=== PATIENT | female | born 1995 | race Caucasian/White ===

== ENCOUNTER 2017-10-13 13:09 | Emergency (ER) | payer OTHER ==
[2017-10-13 13:26] VITALS: O2SAT 98
--- NOTE | 2017-10-13 14:10 | C.PDOC ---
History Of Present Illness 22 y/o female presents to the ER for evaluation after she had a syncopal episode during a blood withdrawal in the lab today. Patient states that she is 32 weeks and undergoing care. Patient reports that she is eating and drinking normally. Denies having seizure activity. Currently, patient is at baseline at bedside. Time Seen by Provider: 10/13/17 14:06 Chief Complaint (Nursing): Syncope History Per: Patient History/Exam Limitations: no limitations Onset/Duration Of Symptoms: Hrs Current Symptoms Are (Timing): Gone Severity: Moderate Past Medical History Reviewed: Historical Data, Nursing Documentation, Vital Signs Vital Signs: Last Vital Signs Temp 98.7 F 10/13/17 14:22 Pulse 98 H 10/13/17 14:22 Resp 18 10/13/17 14:22 BP 100/63 10/13/17 14:22 Pulse Ox 98 10/13/17 16:15 - Medical History PMH: No Chronic Diseases Surgical History: No Surg Hx Family History: States: No Known Family Hx - Social History Hx Alcohol Use: No Hx Substance Use: No - Immunization History Hx Tetanus Toxoid Vaccination: Yes Hx Influenza Vaccination: Yes Hx Pneumococcal Vaccination: Yes Review Of Systems Except As Marked, All Systems Reviewed And Found Negative. Constitutional: Negative for: Fever, Chills Neurological: Negative for: Seizures Physical Exam - Physical Exam Appears: Non-toxic, No Acute Distress, Other (very ) Skin: Normal Color, Warm, Dry Head: Atraumatic, Normacephalic Eye(s): bilateral: Normal Inspection Nose: Normal Oral Mucosa: Moist Neck: Supple Chest: Symmetrical Cardiovascular: Rhythm Regular Respiratory: Normal Breath Sounds, No Rales, No Rhonchi, No Wheezing Gastrointestinal/Abdominal: Normal Exam, Soft, No Tenderness Extremity: Normal ROM, No Pedal Edema Neurological/Psych: Oriented x3, Normal Speech ED Course And Treatment ECG: Interpreted By Me, Viewed By Me ECG Rhythm: Sinus Rhythm ECG Interpretation: Normal Rate From EC O2 Sat by Pulse Oximetry: 98 (RA) Pulse Ox Interpretation: Normal Medical Decision Making Medical Decision Making: vasovagal syncope during blood draw in outpatient lab today back to baseline all w/u nl to date. pt and family defer w/u with informed consent. Disposition Doctor Will See Patient In The: Office Counseled Patient/Family Regarding: Studies Performed, Diagnosis - Disposition Referrals: [facility] [Outside] [facility] [Outside] [email or web address] [Outside] Disposition: HOME/ ROUTINE Disposition Time: 14:10 Condition: GOOD Additional Instructions: this kind of syncope/fainting is common when having blood drawn (as today) and is NOT dangerous Continue normal care. Instructions: Syncope (Fainting), Vasovagal Response (DC) Forms: [employer] [facility] (Kazakh) - Clinical Impression Clinical Impression: Vasovagal episode - Scribe Statement The provider has reviewed the documentation as recorded by the [place] Provider Attestation: All medical record entries made by the Scribe were at my direction and personally dictated by me. I have reviewed the chart and agree that the record accurately reflects my personal performance of the history, physical exam, medical decision making, and the department course for this patient. I have also personally directed, reviewed, and agree with the discharge instructions and disposition.
[2017-10-13 14:27] VITALS: BP 100/63; PULSE 98; RESP 18; TEMP 98.7
--- NOTE | 2017-10-13 15:08 | PCM.RRT ---
<Sade Pires - Last Filed: 10/13/17 15:06> BUNDLE TIER AND LABELER Nurses Assessment - Situation Date: 10/13/17 Time BUNDLE TIER AND LABELER was called: 12:41 BUNDLE TIER AND LABELER Responder Arrival Time:: 12:45 BUNDLE TIER AND LABELER Location:: Laboratory B[facility] [employer] LABELER Reason for Call: Change in Mental Status BUNDLE TIER AND LABELER Called By: Other Disciplines - Constitutional Appears: Non-toxic, In Acute Distress - Head Head Exam: ATRAUMATIC, NORMAL INSPECTION - Eyes Eye Exam: EOMI, Normal appearance - Respiratory Exam Respiratory Exam: Clear to Ausculation Bilateral, NORMAL BREATHING PATTERN - Cardiovascular Exam Cardiovascular Exam: Bradycardia, REGULAR RHYTHM, +S1, +S2 - GI/Abdominal Exam Additional comments: gravid Plan - Assessment of Findings&Treatment Plan BUNDLE TIER AND LABELER was called by car record clerk due to a syncopal event during blood draw. Patient is 32 weeks and was getting her one hour sugar blood work. Patient's initial vitals: B/P 90/60 and glucose of 88. Patient states she has not had anything to eat since the previous day for her blood work. Patient was given to cups of orange juice. Vitals were retaken B/P 100/80. Patient was taken to the emergency room for further evaluation. <Jonathan Watkins - Last Filed: 10/13/17 15:38> Attending/Attestation - Attestation I have personally seen and examined this patient.: Yes I have fully participated in the care of the patient.: Yes I have reviewed all pertinent clinical information, including history, physical exam and plan: Yes Notes (Text): 10/13/17 15:35 BUNDLE TIER AND LABELER [facility] Patient was sitting in chair. Appears to have fainted very briefly. Accucheck as well as blood pressure were done and were ok. We laid patient down on strecher to rest. She was given orange juice. Later she was able to stand and walk to wheel chair and brought to the ER Jonathan Watkins
--- NOTE | 2017-10-14 12:46 | CARD ---
APPROVED REPORT EKG Measurement Heart [id number] LA [id number] <Conclusion> Normal sinus rhythm Normal ECG
== END 2017-10-13 14:27 | disposition home or self-care (01) ==
LOC: C.ER 13:09
DX: O26.893 Other specified pregnancy related conditions, third trimester (principal); R55 Syncope and collapse; Z3A.32 32 weeks gestation of pregnancy

== ENCOUNTER 2017-12-05 10:49 | Emergency (ER) | payer OTHER ==
--- NOTE | 2017-12-05 14:14 | OBHP ---
Datetime: 12/05/2017 14:07 IP Adm Impression: Term, intrauterine IP Admit Plan: Observation/Evaluation Admit Comment, IP Provider: 22 y/o at 39 wks presented with c/o ctx started over the weekens an d stronger since this morning. No c/o LOF, VB. + FM PMH: Deneis PSH: Denies POBH:Primigravid Exam: VE: 1-2/-2 x 2 [place]: ctx 4-6 min EFM: Category 1 A/P: 22 y/o at 39 wks, R/O Labor Labor precaution discussed Has solange this week for f/u. Presentation-Admit: Vertex FHR - Baseline A Provider: 130 Gestation - Est Wks by US: 39.0 Vital Signs Provider: Reviewed; Within Normal Limits NICHD Variability Prov Fetus A: Moderate 6-25bpm NICHD Accel Fetus A IP Provider: 15X15 NICHD Decel Fetus A IP Provider: None Dilatation, Provider: 2 Effacement, Provider: 70 Station, Provider: -2 Datetime: 12/05/2017 12:22 EGA AdmitDate IP: 39.3 IP Chief Complaint: Uterine contractions
[2017-12-05 18:50] VITALS: BP 106/73; PULSE 105; RESP 20; O2SAT 98
== END 2017-12-05 14:25 | disposition home or self-care (01) ==
LOC: C.EROB 10:49
DX: O47.1 False labor at or after 37 completed weeks of gestation (principal); Z3A.39 39 weeks gestation of pregnancy

== ENCOUNTER 2017-12-06 03:30 | Inpatient (IN) | payer MEDICAID, OTHER ==
[2017-12-06 04:17] VITALS: BMI 27.1
[2017-12-06] MEDS ORDERED: Lactated Ringer's 1,000 ML IV ONE (04:18)
[2017-12-06 04:35] LABS: SQUAMOUS EPITHIAL 6 /hpf (0-5); URINE BILIRUBIN NEGATIVE (NEGATIVE); URINE CLARITY Clear (Clear); URINE COLOR Yellow (YELLOW); URINE GLUCOSE (UA) NORMAL (Normal); URINE LEUKOCYTE ESTERASE TRACE Leu/uL (Negative); URINE PROTEIN NEGATIVE (NEGATIVE); URINE UROBILINOGEN NORMAL mg/dL (0.2-1.0)
[2017-12-06] MEDS ORDERED: Penicillin G 5 Million Unit Vial IVPB ONE (04:51)
[2017-12-06 05:16] LABS: BASO % 0.2 % (0.0-2.0); EOS % 0.2 % (0.0-4.0); LYMPH # 1.5 K/uL (1.0-4.3); LYMPH % 11.4 % (20.0-40.0); MEAN CELL VOLUME 84.7 fL (81.0-99.0); MEAN CORPUSCULAR HEMOGLOBIN 28.9 pg (27.0-31.0); MEAN CORPUSCULAR HGB CONC 34.1 g/dL (33.0-37.0); MEAN PLATELET VOLUME 7.5 fL (7.2-11.7); MONO # 0.8 K/uL (0.0-0.8); NEUT # 10.8 K/uL (1.8-7.0); NEUT % 82.2 % (50.0-75.0); NRBC % 0.2 % (0.0-2.0); RBC 4.49 Mil/uL (3.80-5.20); RED CELL DISTRIBUTION WIDTH 13.9 % (11.5-14.5); WHITE BLOOD COUNT 13.1 K/uL (4.8-10.8)
[2017-12-06 05:35] LABS: ALB/GLOB RATIO 1.3 (1.0-2.1); ALBUMIN 4.2 g/dL (3.5-5.0); ALT/SGPT 22 U/L (9-52); AST/SGOT 19 U/L (14-36); BLOOD UREA NITROGEN 7 mg/dL (7-17); GFR AFRICAN-AMERICAN > 60; GFR NON-AFRICAN AMERICAN > 60
--- NOTE | 2017-12-06 06:14 | OBADHP ---
Datetime: 12/06/2017 06:11 Admit Comment, IP Provider: at 39.4weeks came with /o ctxs stared yesterday got worse in night, q1-4 min, 01/06,no vb, lof=fm obhx primi mh den medc pnv all nkdaph de soch de ve 100/0 a/p at 39+wek in abor admi to l_d_ npo/ivf labs pain ma gbs prophy anticipate Pelvic Type - PN: Adequate Extremities - PN: Normal Abdomen - PN: Normal Back - PN: Normal Breast - PN: Normal Lungs - PN: Normal Heart - PN: Normal Thyroid - PN: Normal Neurologic - PN: Normal HEENT - PN: Normal General - PN: Normal FHR - Baseline A Provider: 130 Contraction Comments Provider: q1-4 Vital Signs Provider: Reviewed; Within Normal Limits IP Chief Complaint: Uterine contractions NICHD Variability Prov Fetus A: Moderate 6-25bpm NICHD Accel Fetus A IP Provider: 15X15 FHR Category Provider Fetus A: Category I Dilatation, Provider: 4 Effacement, Provider: 100 Station, Provider: -1 Genitourinary Exam: Normal DTRs - PN: Normal EGA AdmitDate IP: 39.4 IP Adm Impression: Term, intrauterine ; Active labor IP Admit Plan: Admit to unit; Initiate labor protocol Datetime: 12/05/2017 14:07 Presentation-Admit: Vertex Gestation - Est Wks by US: 39.0 NICHD Decel Fetus A IP Provider: None
[2017-12-06 07:14] LABS: URINE BLOOD TRACE (NEGATIVE)
[2017-12-06] MEDS ORDERED: Bupivacaine HCl/FentaNYL Cit 100 ML EPI ONE ×2 (07:26→15:03)
[2017-12-06] MEDS ORDERED: Lidocaine 2% MPF (5 ml) Inj ONE (07:44)
--- NOTE | 2017-12-06 09:23 | OBPN ---
Datetime: 12/06/2017 09:15 IP Progress Impression: Normal progression of labor; Reassuring heart rate IP Informed Consent Obtain: Vaginal Delivery IP Procedures: Artificial ROM IP Progress Plan: Continue present management; Anticipate Vaginal Delivery Membranes, Provider: Ruptured Amniotic Fluid Color, Provider: Clear FHR - Baseline A Provider: 130's IP Fetus A Comments: Ressuring FHT's Gestation - Est Wks by US: 39.4 Presentation-Admit: Vertex IP Progress Note Comment: 22 yo female G1 with an IUP at 39.4 weeks and admitted in early labor last PM Epidural was placed by Anesthesia and patient very comfortable UC's Q 3-4 minutes and SVE 5/100/0 station AROM performed with clear fluid Anticipate a vaginal delivery Vital Signs Provider: Reviewed; Within Normal Limits NICHD Accel Fetus A IP Provider: 15X15 FHR Category Provider Fetus A: Category I NICHD Variability Prov Fetus A: Moderate 6-25bpm NICHD Decel Fetus A IP Provider: None Datetime: 12/06/2017 06:11 Contraction Comments Provider: q1-4 Dilatation, Provider: 4 Effacement, Provider: 100 Station, Provider: -1
[2017-12-06] MEDS ORDERED: Oxytocin 30 UNIT 30 UNITS/500 ML BAG IV ONE ×2 (11:53→18:00)
--- NOTE | 2017-12-06 14:35 | OBPN ---
Datetime: 12/06/2017 14:27 IP Progress Impression: Normal progression of labor; Reassuring heart rate IP Informed Consent Obtain: Vaginal Delivery IP Procedures: Intrauterine Pressure Catheter IP Progress Plan: Continue present management Membranes, Provider: Ruptured Amniotic Fluid Color, Provider: Clear Contraction Comments Provider: Q 204 mins FHR - Baseline A Provider: 120-130 Gestation - Est Wks by US: 39.0 Presentation-Admit: Vertex IP Progress Note Comment: Pitocin started for augmentation of labor and presently at 10 mu/min IUPC placed with ease Epidural working well and pt comfortable Continue Antibiotic prophylaxis Hope for a vaginal delivery Vital Signs Provider: Reviewed; Within Normal Limits NICHD Accel Fetus A IP Provider: 10X10 NICHD Variability Prov Fetus A: Moderate 6-25bpm Dilatation, Provider: 6 Effacement, Provider: 100 Station, Provider: 0 NICHD Decel Fetus A IP Provider: None
[2017-12-06] MEDS ORDERED: Oxycodone/Acetaminophen 5/325 mg Tab PO PRN (18:00)
--- NOTE | 2017-12-06 18:42 | OBDS ---
DELIVERY PERSONNEL Delivery Doctor: karo Roca: Shamar Mayes RN Anesthesiologist: yamileth MATERNAL INFORMATION Delivery Anesthesia: Epidural Estimated Blood Loss (ml): 200 mls Placenta Cultured: No Maternal Complications: None RN Comments: +GBS Provider Comments: of a viable female from ROMAN position and over an intact perineum. Apgars 9_9 and BW 3070 grams or 6#'s 12oz EBL 200 mls No complications Pt and both tolerated the procedure well and remained in LDR room in S_S condition LABOR SUMMARY EDC: 12/09/2017 00:00 No. Babies in Womb: 0 Attempted: No Labor Anesthesia: Epidural LABOR INFORMATION Reason for Induction: Not Applicable Onset of Labor: 12/06/2017 07:00 Complete Dilatation: 12/06/2017 17:02 Oxytocin: Augmentation Group B Beta Strep: Positive (Annotations: ) Antibiotics # of Doses: 4 Antibiotics Time of Last Dose: pm Steroids Given: None Reason Steroids Not Administered: Not Applicable MEMBRANES Membranes Rupture Method: Artificial Rupture of Membranes: 12/06/2017 09:12 Length of Rupture (hrs): 8.25 Amniotic Fluid Color: Clear Amniotic Fluid Amount: Small Amniotic Fluid Odor: Normal STAGES OF LABOR Stage 1 hrs: 10 Stage 1 min: 2 Stage 2 hrs: 0 Stage 2 min: 25 Stage 3 hrs: 0 Stage 3 min: 7 Total Time in Labor hrs: 10 Total Time in Labor min: 34 VAGINAL DELIVERY Episiotomy: None Laceration Extension: N/A Laceration Type: None Sponge Count Correct: Yes Sharps Count Correct: Yes BABY A INFORMATION Delivery Date/Time: 12/06/2017 17:27 Method of Delivery: Vaginal Born in Route : No : N/A Forceps: N/A Vacuum Extraction: N/A Shoulder Dystocia : No SHOULDER DYSTOCIA BABY A Infant Delivery Date/Time: 12/06/2017 17:27 PRESENTATION/POSITION BABY A Presentation: Cephalic Cephalic Presentation: Vertex Breech Presentation: N/A PLACENTA INFORMATION BABY A Placenta Delivery Time : 12/06/2017 17:34 Placenta Method of Delivery: Spontaneous Placenta Status: Delivered SCORES BABY A Heart Rate 1 min: >100 bpm Resp Effort 1 min: Good Cry Reflex Irritability 1 min: Cough or Sneeze or Pulls Away Muscle Tone 1 min: Active Motion Color 1 min: Body [place], Extremities Blue Resuscitation Effort 1 min: N/A SCORE 1 MIN: 9 Heart Rate 5 min: >100 bpm Resp Effort 5 min: Good Cry Reflex Irritability 5 min: Cough or Sneeze or Pulls Away Muscle Tone 5 min: Active Motion Color 5 min: Body [place], Extremities Blue Resuscitation Effort 5 min: N/A SCORE 5 MIN: 9 INFORMATION BABY A Gestational Age at Delivery: 39.4 Gestational Status: Term IDENTIFICATION/MEDS BABY A ID Band Number: [id number] ID Band Location: Left Leg; Left Arm Sensor Applied: Yes Sensor Number: [id number] Sensor Location : Cord Clamp WEIGHT/LENGTH BABY A Birthweight (gms): 3070 Weight (lb): 6 Weight (oz): 12 Length Inches: 19.00 Infant Length cms: 48.3 CORD INFORMATION BABY A No. Cord Vessels: 3 Nuchal Cord : N/A Cord Blood Taken: Yes
[2017-12-07 07:41] LABS: HEMOGLOBIN 11.3 g/dL (11.0-16.0); MEAN CORPUSCULAR HGB CONC 35.3 g/dL (33.0-37.0); MEAN PLATELET VOLUME 7.3 fL (7.2-11.7); RBC 3.76 Mil/uL (3.80-5.20); RED CELL DISTRIBUTION WIDTH 14.3 % (11.5-14.5); WHITE BLOOD COUNT 12.2 K/uL (4.8-10.8)
--- NOTE | 2017-12-07 08:43 | OBPPN ---
Datetime: 12/07/2017 08:39 PP Pain Prov: Within normal limits PP Nausea Prov: Denies PP Flatus Prov: Yes PP Abdomen/Uterus Prov: Normal PP Extremities Prov: Normal PP Impression Prov: Normal progression PP Plan Prov: Continue present management PP Progress Note Prov: pt was seen at bed side, pain under control,no n/v, tolerating,min ochia, fl atus+ ppd#1 cbc cont pp car cont pain ma Vital Signs Provider PP: Reviewed; Within Normal Limits
[2017-12-07] MEDS: Multiple Vitamins Tab PO SCH (09:52)
[2017-12-08] MEDS: Multiple Vitamins Tab PO SCH (09:25)
--- NOTE | 2017-12-08 12:07 | OBDCSUM ---
Datetime: 12/08/2017 09:16 Discharged to, Provider: Home Follow up at, Provider: [facility] Disch Instr Activity: Normal activity Disch Instr Diet: Regular Discharge Instructions, Provider: Routine instructions given Discharge Diagnosis, Provider: Term Delivered Discharge Time: 12/08/2017 12:00 Follow up in weeks, Provider: 6 weeks Disch Referrals: None Disch Activity Restrictions: Minimize stair-climbing; No sexual activity; Nothing in vagina - Interc ourse, tampons, douche
--- NOTE | 2017-12-08 12:07 | OBPPN ---
Datetime: 12/08/2017 12:01 PP Pain Prov: Within normal limits PP Nausea Prov: Denies PP Flatus Prov: Yes PP BM Prov: No PP Breasts Prov: Normal PP Heart Prov: Normal PP Lungs Prov: Normal PP Abdomen/Uterus Prov: Normal PP Vulva/Perineum Prov: Normal PP Extremities Prov: Normal PP Progress Prov: Normal PP Comments Phys Exam Prov: breast: no cracks PP Impression Prov: Normal progression PP Plan Prov: Discharge PP Progress Note Prov: s: denies abd or perineal pain; + w/ some soreness. i: s/p doing well breast nipple soreness p: consult f/u for d/c home today f/u 4-6wks IP PP Procedures: None Vital Signs Provider PP: Within Normal Limits
[2017-12-08 17:26] VITALS: BP 109/65; PULSE 85; RESP 20; TEMP 97.5; O2SAT 99
== END 2017-12-08 13:05 | disposition home or self-care (01) | DRG 373 ==
LOC: C.EROB 03:30 → C.4LDOR 04:15 → C.4D 04:39 → C.4M 20:07
PROVIDERS: ADMIT Obstetrics & Gynecology; ATTEND Obstetrics & Gynecology
PROC: 10E0XZZ Delivery of Products of Conception, External Approach (ICD-10-PCS; principal; 2017-12-06)
PROC: 10907ZC Drainage of Amniotic Fluid, Therapeutic from Products of Conception, Via Natural or Artificial Opening (ICD-10-PCS; 2017-12-06)
DX: O80 Encounter for full-term uncomplicated delivery (principal); Z3A.39 39 weeks gestation of pregnancy; Z37.0 Single live birth